=== PATIENT | female | born 1930 | race Caucasian/White ===

== ENCOUNTER → 2016-10-21 | Day surgery (SDC) | payer OTHER, MEDICARE ==
[~2016-10-21] MED LIST: ASPI1TAB69 PO; ATOR10TA15 PO; BUPIVACAINE HCL PF 0.5% 30 ML VIAL ONE; DILT-64 PO; GABA100C4 PO; HYDR-3516 PO; LATA0.002 EACH EYE; METO50TA PO; MULT1TAB84 PO; NEXI40CA PO; POTA10TA8 PO; PROPOFOL 200 MG/20 ML AMP IV ONE; SERT25TA83 PO; TRIAMCINOLONE ACETONIDE 40 MG/ML VIAL I-ARTICULR ONE
--- NOTE | 2016-10-26 10:02 | M6 ---
cc: MARVEL JACOBS M.D. DATE: 10/21/2016 DATE OF : 1930 PROCEDURE Fluoroscopically guided injection left cervical facet joints (left C2-3, C3-4, C4-5 and C5-6 facet joints). PROCEDURE NOTE History and physical was completed and signed. Consent was signed. Procedure site was marked. Medications were listed and reconciled. Pain score was recorded. Allergies were noted. Timeout was taken. Fluoroscopy time was recorded where applicable. Sedation was administered or directed by Dr. Jacobs. The patient was given oxygen. The patient was monitored by a registered nurse. Total procedure time was greater than 15 minutes. An IV was started, blood pressure cuff, pulse oximeter and EKG were applied. The patient was placed in a prone position on a Kristopher table, sedated with small amounts of propofol titrated to effect. Vital signs were monitored and remained stable throughout the procedure. The cervical area was prepped with alcohol and 10% Betadine solution, draped with sterile drapes. Fluoroscopy was used to visualize the left cervical facet joints at C2-3, C3-4, C4-5 and C5-6. Separate sterile 3-1/2 inch 25-gauge needles were advanced into these joints under fluoroscopic guidance. There was negative aspiration for blood or any other type of fluid and the patient was given 1 mL of 0.5% Marcaine, 10 mg of Kenalog at each location. Following this the patient was taken to the recovery room with stable vital signs neurologically intact. She will be evaluated immediately and with follow-up to determine if she has a subjective decrease in her usual pain and a corresponding objective increase in her functional capabilities. WAndrea Jacobs MD [facility]/BT /8:02 AM /8:58 AM
== END | disposition home or self-care (01) ==
LOC: PHSDC 06:47
PROVIDERS: ATTEND Pain Medicine Interventional Pain Medicine
DX: M54.2 Cervicalgia (principal); M54.5 Low back pain
CPT/HCPCS: 64490; 64491; 64492; 99152; J3301